=== PATIENT | male | born 1980 | race Caucasian/White ===

== ENCOUNTER 2016-08-12 02:45 | Emergency (ER) | payer MEDICAID ==
[2016-08-12] MEDS ORDERED: LORazepam 1 MG TABLET ONE (03:09)
[2016-08-12 03:12] LABS: BASOPHIL# 0.5 X 10^3uL (0.0-0.1); BASOPHILS 3.1 % (0.0-2.0); EOSINOPHILS 0.5 % (0.0-6.0); EOSINOPHILS# 0.1 X 10^3uL (0.0-0.4); HEMOGLOBIN 14.6 g/dL (14.0-18.0); LYMPHOCYTES 23.9 % (20.0-40.0); LYMPHOCYTES# 3.7 X 10^3uL (0.8-3.8); MEAN CELL VOLUME 89.3 fL (80.0-100.0); MEAN CORPUS. HGB CONCENTRATION 34.1 g/dL (32.0-36.0); MEAN CORPUSCULAR HEMOGLOBIN 30.5 pg (29.0-35.0); MEAN PLATELET VOLUME 8.5 fL (7.4-10.4); MONOCYTES 7.6 % (2.0-10.0); MONOCYTES# 1.2 X 10^3uL (0.2-1.0); NEUTROPHILS 64.9 % (54.0-75.0); PLATELET COUNT 349 X 10^3uL (130-440); RED BLOOD COUNT 4.81 X 10^6uL (4.20-6.10); RED CELL DISTRIBUTION WIDTH 13.2 % (11.5-14.5); WHITE BLOOD COUNT 15.5 X 10^3uL (3.9-10.7)
[2016-08-12 03:41] LABS: ALBUMIN 4.6 g/dL (3.5-5.0); ALKALINE PHOSPHATASE 114 U/L (38-126); ALT 61 U/L (21-72); AST 146 U/L (17-59); BILIRUBIN, DIRECT 0.2 mg/dL (0.0-0.4); BILIRUBIN, TOTAL 1.7 mg/dL (0.2-1.3); BLOOD UREA NITROGEN 54 mg/dL (9-20); CALCIUM 9.2 mg/dL (8.4-10.2); CHLORIDE 101 mmol/L (98-107); EST GLOMERULAR FILTRATION RATE 45 mL/min; GLUCOSE 85 mg/dL (70-100); LIPASE 100 U/L (23-300); POTASSIUM 4.2 mmol/L (3.5-5.1); SODIUM 137 mmol/L (137-145); TOTAL PROTEIN 7.9 g/dL (6.3-8.2)
[2016-08-12 03:46] LABS: ETHYL ALCOHOL < 10 mg/dL (<10); SALICYLATE < 1.0 mg/dL (<20.0)
[2016-08-12 04:04] LABS: URINE MUCUS NONE SEEN (Up to 25%); URINE RBC NONE SEEN (0-5/hpf)
--- NOTE | 2016-08-12 04:08 | ER NURSING DOCUMENTATION ---
Nurse's Notes 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 Transition of care: patient was not received from another setting of care. Notified ED Physician of Dr. Fish notified. 02:52 Acuity: SHARI 2 lb 02:52 Method Of Arrival: Walk In lb Triage Assessment: 08/11 02:40 Neuro: Level of Consciousness is lethargic, listless, obeys commands, Oriented to lb person, place, time, Background Check Coordinator are equal bilaterally Moves all extremities. Gait is steady, Speech very soft, unable to understand at times. . Reports. 08/12 03:03 General: Appears unkempt, Behavior is flat. Pain: Denies pain. lb Historical: - Allergies: No known drug Allergies; - Home Meds: 1. None - PMHx: Meth Addiction; LSD Addiction; DEPRESSION; - PSHx: HERNIA REPAIR; - Tetanus: unknown. - Ebola Screening: : Unable to complete screening because. - Immunization history: Unable to Obtain. - Social history: Smoking status: Patient uses tobacco products, current every day smoker. - Unable to obtain history due to: patient's speech is incomprehensible. Screenin/22 02:45 Suicide Risk Assessment: Suicidal Thinking Present - Yes ( 2 points), Past Attempts - lb No (0 points), Family History of Suicide - No (0 points), Credible Suicide Plan - Yes (3 points), Means to Kill Self Available - Yes (3 points), Has Serious Health Problem - No ( 0 points), Lives Alone - Yes (1 point), Will Contract for Safety - No (3 points), Total Suicide Risk Assessment Score: Score of 3 or Greater (Substantial risk for suicide). Patient placement close to nurses station. 08/12 03:05 Infectious Disease Risk Unable to Obtain. Abuse screen: Unable to Obtain. Nutritional lb screening: Unable to Obtain. Assessment: 03:05 See Triage Assessment done by same RN. lb Vital Signs: 03:04 BP 120 / 81; Pulse 95; Resp 14; Temp 97.4(O); Pulse Ox 97% on R/A; Pain 0/10; lb 03:26 BP 122 / 82; Pulse 93; Resp 14; Pulse Ox 99% on R/A; lb [place] Coma Score: 03:17 Eye Response: spontaneous(4). Verbal Response: oriented(5). Motor Response: obeys cd commands(6). Total: 15. ED Course: 02:47 Patient arrived in ED. ma1 02:47 Physician, No is Private Physician. ma1 02:51 Casper Fish MD is Attending Physician. cd 02:52 Kayla Limon is Primary Nurse. lb 02:53 Triage completed. lb 03:05 Valuables Remains with patient Patient has correct armband on for positive lb identification. Bed in low position. Call light in reach. Side rails up X2. 03:06 Inserted peripheral IV: in right antecubital area and blood collected. lb Administered Medications: 03:02 Drug: Ativan 1 mg; Route: PO; lb 04:06 Follow up: Response: Anxiety decreased lb 03:02 Drug: NS 0.9% 1000 ml; Route: IV; Rate: bolus; Site: right antecubital; lb 03:58 Follow up: IV Status: Completed infusion; IV Intake: 1000ml lb 03:58 CANCELLED (pt transferred to [facility]): NS 0.9% 1000 ml IV at 150 ml/hr continuous lb Point of Care Testing: Blood Glucose: 03:04 Blood Glucose: 90 mg/dL; lb Ranges: Intake: 03:58 IV: 1000ml; Total: 1000ml. lb Outcome: 03:18 [place] [facility] [place] [place] Time: August 12, 2016 at 03:10 Patient's face sheet was faxed to accepting facility. Face Sheet included patient's name, address, age, gender, contact information and insurance information. Patient will be transported by: [facility]. Report called to: [facility] in ED Nurse and Physician Charting and Notes were sent to Accepting Facility. All tests and/or procedures with results, if applicable, were sent to accepting facility. 03:24 ER care complete, transfer ordered by . cd 04:07 Condition: stable lb 04:07 Instructed on need for transfer 04:07 Patient left the ED. lb Signatures: Casper Fish MD MD cd Bollock, Lynda lb Addison, Melissa ma1
--- NOTE | 2016-08-12 04:08 | ER PHYSICIAN DOCUMENTATION ---
Physician Documentation [facility] Name:Guero Lackey Age:36 yrs Sex:Male :1980 Arrival Date:08/12/2016 Time:02:45 Bed5 Private MD:Physician, No ED Casper Tilley Disposition: 08/12/16 03:24 Transfer ordered to [facility]. 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 - Reason for transfer: Specialty. - Accepting physician is Dr. Lyndon Silva. - Condition is Fair. - Problem is new. - Symptoms are unchanged. COBRA Form completed? Yes Transfer - Mode of Transportation Ambulance HPI: 08/12 03:09 This 36 yrs old Male presents to ER via Walk In with complaints of Drug Abuse cd and Suicidal Ideation. 03:09 The patient presents to the emergency department with anxiety, depression, a history of cd substance abuse, Type: Meth and LSD, the amount of abuse is unknown, for years, with a recent binge, suicide ideation, and the patient has a plan, to overdose with medications, or "walk off a geo". Onset: The symptom(s)/episode began/occurred acutely, today. Past psychiatric history: Prior diagnosis: addiction history, Meth and LSD, Psychiatric medications include: none, Primary psychiatric physician: the patient does not have a primary psychiatric physician, the patient has not had a prior suicide gesture, it is unknown whether or not the patient has a previous inpatient psychiatric history. Associated signs and symptoms: Pertinent positives; anxiety, depression, hallucinations, paranoia, substance abuse, suicide ideation, Pertinent negatives: abdominal pain, chest pain, headache, homicidal ideation, shortness of breath. Severity of symptoms: At their worst the symptoms were severe in the emergency department the symptoms are unchanged. The patient has experienced a previous episode. Historical: - Allergies: No known drug Allergies; - Home Meds: 1. None - PMHx: Meth Addiction; LSD Addiction; DEPRESSION; - PSHx: HERNIA REPAIR; - Tetanus: unknown. - Ebola Screening: : Unable to complete screening because. - Immunization history: Unable to Obtain. - Social history: Smoking status: Patient uses tobacco products, current every day smoker. - Unable to obtain history due to: patient's speech is incomprehensible. ROS: 03:17 Eyes: Negative for injury, pain, redness, discharge, blurry vision and loss of vision. cd ENT: Negative for injury, pain, epistaxis and discharge. Neck: Negative for injury, pain, stiffness and swelling. Cardiovascular: Negative for chest pain, palpitations, edema and pleuritic pain. Respiratory: Negative for shortness of breath, dyspnea on exertion, cough, sputum production, wheezing, hemoptysis and pleuritic chest pain. Abdomen/GI: Negative for abdominal pain, nausea, vomiting, diarrhea, constipation, distension, melena, hematochezia and hematemesis. Back: Negative for injury, pain or muscle spasms. : Negative for injury, bleeding, discharge, swelling, dysuria, frequency or urgency. MS/Extremity: Negative for injury, deformity, edema, calf tenderness, pain or coldness. Skin: Negative for injury, rash, itching and discoloration. 03:17 Neuro: Negative for headache, weakness, numbness, tingling, and seizure. cd 03:17 Constitutional: Positive for poor PO intake, Negative for chills, fever. 03:17 Psych: Positive for anxiety, depression, drug dependence, visual hallucinations, suicidal ideation. 03:17 All other systems are negative. Exam: Head/Face: Normocephalic, atraumatic. Eyes: Pupils equal round and reactive to light, extra-ocular motions intact. Lids and lashes normal. Conjunctiva and sclera are non-icteric and not injected. Cornea within normal limits. Periorbital areas with no swelling, redness, or edema. ENT: Nares patent. No nasal discharge, no septal abnormalities noted. Tympanic membranes are normal and external auditory canals are clear. Oropharynx with no redness, swelling, or masses, exudates, or evidence of obstruction, uvula midline. Mucous membranes dry. Neck: Trachea midline, no thyromegaly or masses palpated, and no cervical lymphadenopathy. Supple, full range of motion without nuchal rigidity, or vertebral point tenderness. No Meningismus. Chest/axilla: Normal chest wall appearance and motion. Nontender with no deformity. No lesions are appreciated. Cardiovascular: Regular rate and rhythm with a normal S1 and S2. No gallops, murmurs, or rubs. Normal PMI, no JVD. No pulse deficits. Respiratory: Lungs have equal breath sounds bilaterally, clear to auscultation and percussion. No rales, rhonchi or wheezes noted. No increased work of breathing, no retractions or nasal flaring. Abdomen/GI: Soft, non-tender, with normal bowel sounds. No distension or tympany. No guarding or rebound. No evidence of tenderness throughout. Back: No spinal tenderness. No costovertebral tenderness. Full range of motion. Skin: Warm, dry with normal turgor. Normal color with no rashes, no lesions, and no evidence of cellulitis. MS/ Extremity: Pulses equal, no cyanosis. Neurovascular intact. Full, normal range of motion. 03:17 Neuro: Awake and alert, GCS 15, oriented to person, place, time, and situation. cd Cranial nerves II-XII grossly intact. Motor strength 5/5 in all extremities. Sensory grossly intact. Cerebellar exam normal. Normal gait. 03:17 Constitutional: The patient appears alert, awake, non-diaphoretic, non-toxic, well developed, well nourished, anxious, in obvious distress, moderately distressed. 03:17 Psych: Behavior/mood is cooperative, anxious, suicidal, depressed, Affect is flat, Oriented to person, place, Patient having thoughts of suicide. Plan for suicide is to OD or walk off a Geo Judgement / Insight is impaired. Recent memory is impaired. Remote memory is intact. Delusions/hallucinations are present and described as Patient having Visual Hallucination. Vital Signs: 03:04 BP 120 / 81; Pulse 95; Resp 14; Temp 97.4(O); Pulse Ox 97% on R/A; Pain 0/10; lb 03:26 BP 122 / 82; Pulse 93; Resp 14; Pulse Ox 99% on R/A; lb [place] Coma Score: 03:17 Eye Response: spontaneous(4). Verbal Response: oriented(5). Motor Response: obeys cd commands(6). Total: 15. MDM: 02:51 Patient medically screened. cd 03:00 Data interpreted: Pulse oximetry: on room air is 97 %. Interpretation: normal. cd Counseling: I had a detailed discussion with the patient and/or guardian regarding: the historical points, exam findings, and any diagnostic results supporting the discharge/admit diagnosis, lab results, the need to transfer to another facility, [facility]. Response to treatment: the patient's symptoms have mildly improved after treatment, and as a result, I will transfer the patient to [facility] ED for a Psychiatric Evaluation. Physician consultation: Lyndon Silva MD was called at 03:10, was contacted at 03:15, regarding admission, to the [facility] ED, consult, patient's condition, need to come to ED to see patient, need to evaluate the patient as soon as possible, and will see patient in ED, shortly, later today, after a discussion of the case, a recommendation for transfer for higher level of care is made. 03:19 Differential diagnosis: drug withdrawal. acute psychotic break, depression, Meth and cd LSD Addiction, Suicidal Ideation, Dehydration. 03:20 Data reviewed: vital signs, nurses notes, old medical records, lab test result(s), and cd as a result, I will *Transfer Patient administer IV fluids, NS bolus, NS maintenence, prescribe sedation medication, lorazepam. 08/12 03:14 Order name: CBC AUTO DIF, MDIF/RMOR IF IND [facility] 08/12 03:24 Interpretation: Normal Except: WHITE BLOOD COUNT 15.5. 08/12 03:46 Order name: BASIC METABOLIC PANEL [facility] 08/12 03:46 Order name: HEPATIC PANEL [facility] 08/12 03:46 Order name: LIPASE [facility] 08/12 03:46 Order name: SALICYLATE [facility] 08/12 03:46 Order name: ETHYL ALCOHOL [facility] 08/12 04:25 Order name: UA W/ MICRO -CULTURE IF IND [facility] 08/12 04:25 Order name: URINE DRUG SCREEN, QUAL [facility] 08/12 04:58 Order name: THYROID STIMULATING HORMONE [facility] 08/12 02:53 Order name: Continuous Cardiac Monitoring; Complete Time: 03:01 08/12 02:53 Order name: I & O; Complete Time: 03:01 08/12 02:53 Order name: Iv Saline Lock; Complete Time: 03:01 08/12 02:53 Order name: NPO; Complete Time: 03:01 08/12 02:53 Order name: Pulse Ox Continuous; Complete Time: 03:01 08/12 02:53 Order name: Suicide Precautions; Complete Time: 03:01 08/12 02:53 Order name: Accucheck; Complete Time: 03:02 cd Dispensed Medications: 03:02 Drug: Ativan 1 mg; Route: PO; lb 04:06 Follow up: Response: Anxiety decreased lb 03:02 Drug: NS 0.9% 1000 ml; Route: IV; Rate: bolus; Site: right antecubital; lb 03:58 Follow up: IV Status: Completed infusion; IV Intake: 1000ml lb 03:58 CANCELLED (pt transferred to [facility]): NS 0.9% 1000 ml IV at 150 ml/hr continuous lb Point of Care Testing: Blood Glucose: 03:04 Blood Glucose: 90 mg/dL; lb Ranges: Critical Glucose Levels:Adult <50 mg/dl or >400 mg/dl <40 mg/dl or >180 mg/dl Signatures: Casper Fish MD MD cd Kayla Limon
[2016-08-12 04:11] LABS: THYROID STIMULATING HORMONE 1.24 uIU/mL (0.47-4.68)
[2016-08-12 04:18] LABS: URINE APPEARANCE CLEAR; URINE COLOR YELLOW; URINE LEUKOCYTE ESTERASE NEGATIVE (NEGATIVE); URINE NITRITE NEGATIVE (NEGATIVE); URINE PH 5.5 (5-7); URINE SPECIFIC GRAVITY 1.025 (0.001-1.035)
[2016-08-12 04:19] LABS: URINE BACTERIA NONE SEEN (<10/hpf); URINE BILIRUBIN NEGATIVE (NEGATIVE); URINE BLOOD NEGATIVE (NEGATIVE); URINE GLUCOSE NORMAL (NEGATIVE); URINE KETONE 10mg/dL (1+) (NEGATIVE); URINE PROTEIN NEGATIVE (NEG - TRACE); URINE SQUAMOUS EPITHELIAL CELL 0-5/hpf (<= 15/hpf); URINE UROBILINOGEN NORMAL (NEG-1mg/dL); URINE WBC 0-4/hpf (0-4/hpf)
== END 2016-08-12 04:08 | disposition short-term general hospital (02) ==
LOC: EEVIPCON 02:45 → ER 02:45
DX: F32.9 Major depressive disorder, single episode, unspecified (principal); R45.851 Suicidal ideations; E86.0 Dehydration; F15.20 Other stimulant dependence, uncomplicated; F16.24 Hallucinogen dependence with hallucinogen-induced mood disorder; F17.210 Nicotine dependence, cigarettes, uncomplicated; F41.9 Anxiety disorder, unspecified; R44.1 Visual hallucinations; Z99.89 Dependence on other enabling machines and devices; Z74.3 Need for continuous supervision
CPT/HCPCS: 80048; 80076; 80305; 80307; 80320; 81001; 83690; 84443; 85025; 96360; 99285